=== PATIENT | male | born 1985 | race Caucasian/White ===

== ENCOUNTER → 2023-08-27 06:24 | Day surgery (SDC) | payer OTHER, SELFPAY | LOC: GI 06:24 | PROVIDERS: ATTENDING PHYSICIAN Specialist | DX: R10.13 Epigastric pain (principal); J04.0 Acute laryngitis; K22.89 Other specified disease of esophagus; K29.71 Gastritis, unspecified, with bleeding; K31.89 Other diseases of stomach and duodenum | CPT/HCPCS: 43239; 88305; 88342 ==

== ENCOUNTER 2023-09-03 20:14 | Emergency (ER) | payer OTHER, SELFPAY ==
[2023-09-03 20:20] VITALS: BP 135/87
[2023-09-03 20:35] LABS: % Basophils 0.9 % (0-2); % Eosinophils 4.2 % (0-6); % Immature Granulocytes 0.2 % (0-0.5); % Lymphocytes 39.6 % (20.5-51.1); % Monocytes 8.1 % (1.7-9.3); Absolute Basophils 0.1 10^3/uL (0-0.2); Absolute Eosinophils 0.2 10^3/uL (0-0.7); Absolute Lymphocytes 2.2 10^3/uL (1.2-3.4); Absolute Monocytes 0.5 10^3/uL (0.1-0.6); Absolute Neutrophils 2.7 10^3/uL (1.4-6.5); Hematocrit 41.9 % (39.0-52.0); Hemoglobin 14.5 g/dL (13.0-18.0); Mean Corp Hgb Conc. 34.6 g/dL (33.0-37.0); Mean Corpuscular Hgb 29.2 pg (27.0-31.0); Mean Corpuscular Volume 84.3 fL (80.0-94.0); Mean Platelet Volume 8.9 fL (7.4-10.4); Nucleated Red Blood Cells % 0 % (-); Platelet Count 259 10^3/uL (130-400); Red Blood Cell Count 4.97 10^6/uL (4.70-6.10); Red Cell Dist. Width 12.3 % (11.5-14.5); White Blood Cell Count 5.7 10^3/uL (4.8-10.8)
[2023-09-03 20:57] LABS: ALT (SGPT) 37 U/L (0-50); AST (SGOT) 35 U/L (17-59); Albumin 5.2 g/dl (3.5-5.0); Alkaline Phosphatase 83 U/L (38-126); Blood Urea Nitrogen 21 mg/dl (9-20); Calcium 9.9 mg/dl (8.4-10.2); Carbon Dioxide 25 mmol/L (22-30); Chloride 103 mmol/L (98-107); Glucose 102 mg/dl (70-99); Potassium 4.2 mmol/L (3.5-5.1); Sodium 139 mmol/L (135-145); Total Bilirubin 0.6 mg/dl (0.2-1.3); Total Protein 7.9 g/dl (6.3-8.2); eGFR > 60.00
[2023-09-03 20:59] LABS: Troponin I < 0.012 ng/ml
--- NOTE | 2023-09-03 22:34 | ED.GENMED ---
History of Present Illness
General
Chief Complaint: Chest Pain
Source: patient and family (Mother)
Exam Limitations: none
Time Seen by Provider: 09/03/23 22:02
Nursing documentation reviewed up to this point in time: agreed with
History of Present Illness
History of Present Illness:
38-year-old male with a past medical history of asthma, GERD, OCD, anxiety who presents to the emergency room with his mother for evaluation shortness of breath. Patient reports that he has been having ongoing issue with intermittent shortness of
breath for the past 1 to 2 months. He says that symptoms seem to be worse when he is lying flat at night, no clear relieving factors noted. He reports associated 'soreness' and tightness in his chest. He reports mild nonproductive cough. Denies
any GI issues. Denies any swelling in the legs. He denies any fevers or chills. He does note that he recently completed treatment for Lyme's disease�he reports that he had Lyme's rash and was treated for 2 weeks with doxycycline but was still
feeling fatigued after completion of treatment and so primary physician added an additional week for total of 3 weeks of doxycycline�he completed treatment course a few days ago. Also of note patient reports that he has had chronic issues with GERD
and had an endoscopy done a week ago that showed eosinophilic esophagitis. Finally, patient does note that symptoms started after transitioning from nicotine pouches to vaping. He thought symptoms could be related to his asthma and so he has been
using his albuterol and Flovent recently but does not feel that it improves his symptoms.
Past History
Past History
ED Past Medical History: Asthma, GERD and Psychiatric (depression)
ED Past Surgical History: None
Patient has exhibited threatening behavior?: No
Social History
Tobacco: Former smoker
Alcohol: Occasional
Personal: Single
Living: with family
Review of Systems
Review of Systems
All Other Systems: ROS reviewed and negative except as documented in HPI and ROS
Constitutional: Denies fever or chills
Respiratory: Reports cough and trouble breathing
Cardiac: Reports chest pain; Denies palpitations
ABD/GI: Denies abdominal pain, nausea or vomiting
: Denies flank pain
Musculoskeletal: Denies edema, neck pain or back pain
Neurological: Denies headache
Phy Exam
Physical Exam
Physical Exam:
General: Awake, alert, oriented x3; no acute distress
Head: Normocephalic, atraumatic
Eyes: Conjunctiva normal, pupils equal round reactive to light bilaterally
Throat: Airway intact, handling secretions
Neck: Trachea midline, supple without meningismus
Lungs: Clear to auscultation bilaterally, no wheezing, rales, rhonchi
Heart: Regular rate and rhythm, no murmurs, gallops, or rubs
Abd: Soft, non distended, nontender
Neuro: No gross deficits
Skin: no rash
Extremities: No edema in extremities, equal pulses in all extremities
Scores
Heart Failure Risk
Heart Failure Risk Score: Not Applicable
Heart Score for Chest Pain Patients
STEMI patient?: Not applicable
Withdrawal Assessment of Alcohol
Withdrawal Assessment Completed?: Not applicable
Course
Orders/Labs/Results
Orders:
Orders
09/03/23 20:16
Electrocardiogram (*1) Urgent
Reason for Study: Chest Pain
EKG- Treatment ONCE
09/03/23 20:29
Complete Blood Count/With Diff Urgent
Comprehensive Metabolic Panel Urgent
Troponin I Urgent
09/03/23 22:40
D-Dimer Urgent
Troponin I Urgent
Abnormal Lab Results
09/03/23
20:29
BUN 21 H mg/dl
(9-20)
Glucose 102 H mg/dl
(70-99)
Albumin 5.2 H g/dl
(3.5-5.0)
09/03/23 20:29
09/03/23 20:29
Vital Signs
Initial and Last Documented VS:
Initial Vital Signs
Temp Pulse Resp BP Pulse Ox
36.4 C 59 16 135/87 99
09/03/23 20:20 09/03/23 20:20 09/03/23 20:20 09/03/23 20:20 09/03/23 20:20
Last Documented Vital Signs
Temp Pulse Resp BP Pulse Ox
36.4 C 59 16 135/87 99
09/03/23 20:20 09/03/23 20:20 09/03/23 20:20 09/03/23 20:20 09/03/23 20:20
MDM/Problems Addressed
Differential Diagnosis Includes:
Asthma exacerbation, anemia, PE, pneumonia, bronchitis, myocarditis, ACS less likely
MDM/Problems Addressed:
38-year-old male with history as above presents for evaluation of shortness of breath and chest discomfort ongoing for the past few weeks. Vital signs normal. Exam as above. Will check labs including a CBC and a CMP. Check D-dimer. Check
troponin. Patient had chest x-ray done as an outpatient today which I reviewed personally and shows no acute pathology. Monitor closely reassess after the above�symptoms could be related to asthma, recently started vaping and noted symptoms seem to
be worse at night and has associated cough; has no wheezing or coughing right now so we will hold off on DuoNeb but may benefit from short course of steroids if workup for emergent pathology negative.
Labs reviewed: CBC unremarkable, CMP no clinically significant abnormalities. Serial troponins undetectable. D-dimer negative. Chest x-ray done earlier reviewed by me shows no acute disease. EKG shows sinus rhythm no acute ischemic changes. On
her symptoms could be related to asthma; patient says that he already has stopped vaping after recently starting. Will plan to start on a short course of steroids and have him continue using albuterol. He is requesting cardiology evaluation as
well�he is concerned because his heart rate has been in the 60s where normally it sits into the 80s at rest. Will refer to cardiology as well. Spoke about return precautions all questions answered.
Chronic conditions affecting care:
Asthma
*Radiology
Radiology exam reviewed: preliminary read by ED provider and radiology read reviewed
*Pulse Oximetry
Patient hypoxic: no
*EKG
Interpreted by ED Provider?: Yes
Heart Rate: 56
Rate: bradycardiac
Rhythm: sinus
[place]: normal axis
Interval: normal interval
QRS Pattern: right bundle branch block (incomplete)
Ischemia: no ischemia
*Critical Care Note
Total Time (30-74mins, 75-104mins- exclusive of procedures): Not Applicable
Data Reviewed
Review of Other/Old Records Reveals: Records and Testing (Endoscopy)
Source: patient and family (mother)
ED Attending Note
-
Portions of this chart may have been created with voice recognition software.� Occasional wrong word or��sound alike� substitutions may have occurred due to the inherent limitations of voice recognition software.
Discharge Plan
Departure
Patient Disposition: Home (Routine Discharge)
Date of Disposition: 09/03/23
Time of Disposition: 23:53
Patient with high blood pressure during this ER visit?: No
Discharge Problem:
Acute dyspnea, Chest pain
Instructions: Asthma, Adult ED, Chest Pain CBC Follow Up
Prescriptions:
New
prednisone 10 mg Tablet
See Rx Instructions .ROUTE .COMPLEX Qty: 30 0RF
Rx Instructions:
Take By Mouth:
40 mg daily x3 days, 30 mg daily x3 days,
20 mg daily x3 days, 10 mg daily x3 days.
No Action
albuterol sulfate 1 PUFF HFA aerosol inhaler
2 puff inhalation DAILY PRN (Reason: sob)
fluvoxamine 50 MG tablet
100 mg PO HS
diazepam 5 MG tablet
10 mg PO HS
buprenorphine HCl 2 MG tablet, sublingual
2 mg sublingual BID
lisdexamfetamine [Vyvanse] 20 MG capsule
20 mg PO DAILY
Dextroamphetamine Sulfate [Dexedrine] 10 MG Capsule.Er
10 mg PO DAILY
Ketamine
120 mg intranasal .EVERY OTHER DAY
Referrals:
Kyaw Young MD [Family Provider] - Call in 1-3 days for appt
Delmar Richardson MD [Active] - Call in 1-3 days for appt
Activity Restrictions/Additional Instructions:
Thank you for visiting the Emergency Department at [facility].
1. Please schedule a follow up appointment as directed. Call first thing tomorrow morning to make an appointment.
2. If indicated, please take your medications as instructed and indicated on discharge paperwork.
3. If any of your symptoms do not improve, or persist, or become more severe within 6-12 hours, please return to the emergency department for further care.
4. Please return to the emergency department if you develop a headache, neck pain/stiffness, fever greater than 100.4F, chest pain, shortness of breath, persistent nausea, vomiting, slurred speech, difficulty walking, numbness/tingling, weakness,
signs of infection or any other symptoms that are worrisome to you.
Please call [phone] if you have any questions.
Interventions
Interventions:
*Risk Screen - Suicide Last Done: 09/03/23 20:20
*General Assessment Last Done: 09/03/23 20:20
*Neglect/Abuse Screening Last Done: 09/03/23 20:20
Discharge Date and Time
Print Language: IRISH
[2023-09-03 23:00] VITALS: BP 119/69
[2023-09-03 23:03] LABS: D-Dimer < 0.27 ug/mlFEU (0.00-0.50)
[2023-09-03 23:10] LABS: Troponin I < 0.012 ng/ml
[2023-09-04] VITALS: BP 128/74
[2023-09-04] MEDS: DELTASONE 50 MG PO (00:04)
== END 2023-09-04 00:12 | disposition home or self-care (01) ==
LOC: EMR 20:14
PROVIDERS: Emergency Medicine; EMERGENCY PHYSICIAN Emergency Medicine; FAMILY PHYSICIAN Family Medicine
DX: R06.00 Dyspnea, unspecified (principal); R07.89 Other chest pain; R05.9 Cough, unspecified; R53.83 Other fatigue; A69.20 Lyme disease, unspecified; I45.19 Other right bundle-branch block; F32.A Depression, unspecified; K21.9 Gastro-esophageal reflux disease without esophagitis; F42.9 Obsessive-compulsive disorder, unspecified; J45.909 Unspecified asthma, uncomplicated; F41.9 Anxiety disorder, unspecified; Z87.891 Personal history of nicotine dependence; Z98.890 Other specified postprocedural states; Z88.1 Allergy status to other antibiotic agents; Z88.2 Allergy status to sulfonamides
CPT/HCPCS: 99283; 36415; 71046; 80053; 84484; 85025; 85379; 93005

== ENCOUNTER → 2023-09-23 11:21 | Outpatient (REF) | payer OTHER, SELFPAY | LOC: HWRCS 11:21 | PROVIDERS: ATTENDING PHYSICIAN Internal Medicine Cardiovascular Disease; FAMILY PHYSICIAN Family Medicine | DX: R06.02 Shortness of breath (principal) | CPT/HCPCS: 93306 ==

== ENCOUNTER → 2023-10-05 08:37 | Outpatient (REF) | payer OTHER, SELFPAY | LOC: RCS 08:37 | PROVIDERS: ATTENDING PHYSICIAN Internal Medicine Cardiovascular Disease; FAMILY PHYSICIAN Family Medicine | DX: R06.02 Shortness of breath (principal) | CPT/HCPCS: 93225; 93226 ==